=== PATIENT | female | born 1990 | race Two or more races ===

== ENCOUNTER → 2017-10-13 | Outpatient (REF) | payer OTHER | LOC: M SFHCPLAZ 15:22 | DX: Z20.818 Contact with and (suspected) exposure to other bacterial communicable diseases (principal) ==

== ENCOUNTER → 2020-01-23 | Outpatient (REF) | payer OTHER ==
[~2020-01-23] MED LIST: DOCU100C16 PO; IBUP80TA PO; PREN1TAB11 PO
== END ==
LOC: M SFHCWAGY 17:08
PROVIDERS: ATTEND Advanced Practice Midwife
DX: Z34.83 Encounter for supervision of other normal pregnancy, third trimester (principal); Z3A.00 Weeks of gestation of pregnancy not specified

== ENCOUNTER → 2020-02-03 | Outpatient (REF) | payer OTHER | LOC: M SFHCWAGY 17:49 | PROVIDERS: ATTEND Advanced Practice Midwife | DX: O26.899 Other specified pregnancy related conditions, unspecified trimester (principal); Z3A.00 Weeks of gestation of pregnancy not specified | CPT/HCPCS: 87086; G0463 ==

== ENCOUNTER 2020-02-24 21:48 | Inpatient (IN) | payer OTHER ==
[~2020-02-24] VITALS: Ht 175.3 cm; Wt 94.3 kg
[~2020-02-24 21:48] MED LIST changes: -DOCU100C16 PO; -IBUP80TA PO
[2020-02-24] MEDS ORDERED: LR 1,000 ML IV SCH (22:14)
[2020-02-24] MEDS ORDERED: PENICILLIN G POTASSIUM IV 5 MU in D5W MINI-BAG PLUS 100 ML IV STA (22:14)
[2020-02-24] MEDS ORDERED: OXYTOCIN 30 UNITS IN 0.9% NaCl 500ML IV BAG (J2590) As Ordered ONE (22:27)
[2020-02-24 22:40] LABS: HEMOGLOBIN 11.5 g/dl (12.0-15.5); MEAN CORPUSCULAR HEMOGLOBIN 30.9 pg (27.0-33.0); MEAN CORPUSCULAR HGB CONC 33.8 g/dl (32.0-36.5); MEAN CORPUSCULAR VOLUME 91.4 fl (80.0-96.0); PLATELET COUNT, AUTOMATED 124 10^3/uL (150-450); RED BLOOD COUNT 3.72 10^6/uL (4.00-5.40); WHITE BLOOD COUNT 16.6 10^3/uL (4.0-10.0)
[2020-02-24 22:49] VITALS: BP 138/65
[2020-02-24 23:06] VITALS: BP 117/58
[2020-02-24 23:20] VITALS: BP 118/71
[2020-02-24 23:21] VITALS: BP 118/59
--- NOTE | 2020-02-24 23:34 | HPEPDOC ---
Obstetrical History & Physical General Date of Admission Feb 24, 2020 at 22:12 Primary Care Physician: TOO GARZA CNM History of Present Illness Amparo is a 29-year-old (G)5 para (P)2-0-2-2 at 40+3 weeks by LMP (05/17/19). Presents to Labor and Delivery (L&D) in active labor at 7-8cm and intact on arrival. Reports contractions started at 1800 and then progressed to regular contractions rapidly. Reports good FM, denies LOF. Patient breathing well through contractions, denies need for intervention at this time. Chief Complaint: Active Labor Information Provided By: Patient Age: 29 : 5 Term: 2 Pre-term: 0 Abortions: 2 Livin Care Care: Good Care Dating Final EDC: Feb 21, 2020 Final EDC by: LMP LMP: May 17, 2019 EGA at Admission: 40.3 Antepartum Course Diagnos(e)s Hx. of C/Section 2009 2017 Height (inches): 69 Pre- weight (lbs.): 195 Admission Weight (lbs.): 208 Change in Weight (lbs.): 13 Past Medical History Past Obstetrical History #1: Past Obstetrical History: Primgravida Date of Delivery: Mar 23, 2010 Gestation: 39 Type of Delivery: Ceserean section (Transverse Breech) Sex of Infant: Female (8lb 5 oz.) Complications: No Past Obstetrical History #2: Past Obstetrical History: Multigravida Date of Delivery: Dec 13, 2017 Type of Delivery: Spontaneous Vaginal Del. () Sex of Infant: Female (7#10oz) Complications: Yes (2VC) SUSTAINABILITY CONSULTANT History: Spontaneous (05/17/19) Past Medical History Medical History Denies Surgical History: section (2009), Other (2018 Scar Removal) Family History Significant Family History: Diabetes (MGF- Pre-Diabetes) Social History Marital Status: Family situation: Spouse/partner home Psychosocial History: No pertinent psych hx * Smoker: non-smoker Alcohol: Denies Drugs: denies Abuse Violence Screening Have you been hit/kicked/slapp: No Have you been sexually assault: No Imunizations Influenza Status: needs Allergies Coded Allergies: No Known Allergies (Unverified , 11/8/17) Medications Scheduled Vit No.124/Iron/Folic ( Vitamin Tablet) 1 Tab Tab, 1 TAB PO DAILY Physical Examination Physical Examination GENERAL: Alert and oriented times three. BREAST: . ABDOMEN: Gravid and non-tender to touch. FETUS: Is vertex (VTX) by sterile vaginal examination (SVE), fetus is vertex (VTX) by Lebron. EFW 7.5-8lbs. by [place] HEART RATE: Regular rate and rhythm. LUNGS: Clear to auscultation (CTA). EXTREMITIES: No edema. No clonus. Deep tendon reflexes (DTRs) + 2. Laboratory Data 24H LABS Laboratory Tests 2 02/24/20 22:22: Nucleated Red Blood Cells % (auto) 0.0 CBC/BMP Laboratory Tests 02/24/20 22:22 Pertinent Laboratoy Data Blood Type: B+ RBC Antibody Screen: Negative HIV: Negative Hepatitis B: Negative Hepatitis C: Unknown Rapid Plasma Reagin: Nonreactive Rubella: Immune Varicella: Immune Chlamydia/Gonorrhea: Negative Group B Streptococcus: Positive (in Urine) Quad Screen Test: Negative Glucose Tolerance Test: 110 Anatomy Ultrasound Ultrasound Date: September 25, 2019 Normal Anatomy: Yes Placenta Previa: No Estimated Weight (grams): 238 Steroid Therapy Steroid Therapy: No Vaginal Examination Dilation: 8 cm Effacement: 100% Station: 0 Cervical Consistency: Soft Cervical Position: Anterior Presentation: Cephalic presentation Position: Vertex (occiput) Assessment Heart Rate (FHR): 135 Variability: Moderate Accelerations: Positive Decelerations: None Tocometer Contractions: Yes Frequency: regular, every 1-3 min. Duration: greater than 60 seconds Strength: palpated as strong Multi-drug resistant Organism: No history of MDRO Assessment/Plan Assessment IUP at 40.3 weeks gestation active labor Prior section with 1 successful Category I FHR tracing GBS positive Plan Admit and orient. New Car Salesperson and consent. Diet: clears Group B Streptococcus (GBS) positive, plan to treat with Penicillin. Labs and intravenous (IV) per unit protocol. Plans for unmedicated . Lactated Ringers (LR): Bolus 500 mL, then saline lock. Anticipate normal spontaneous delivery (). C-S as appropriate. Dr. Blanton aware of patient's status and is heading to the hospital. TOO GARZA CNM Feb 24, 2020 23:34
[2020-02-24 23:36] VITALS: BP 138/59
[2020-02-24] MEDS ORDERED: OXYTOCIN DRIP 30 UNITS in IV 1 EA IV SCH (23:38)
[2020-02-24] MEDS ORDERED: DOCUSATE SODIUM 100 MG CAP PO PRN (23:45)
[2020-02-24] MEDS ORDERED: IBUPROFEN 600MG TAB PO PRN (23:45)
[2020-02-24] MEDS ORDERED: ACETAMINOPHEN TAB 650MG DOSE (2X325MG) PO PRN (23:45)
[2020-02-24] MEDS ORDERED: DIBUCAINE 1% OINTMENT 30GM TOP PRN (23:45)
[2020-02-24] MEDS ORDERED: ANUSOL HC CREAM 30GM TOP PRN (23:45)
[2020-02-24] MEDS ORDERED: RHOGAM 300 MCG (1500 IU) INJ (J2790) IM SCH (23:45)
[2020-02-24] MEDS ORDERED: IBUPROFEN 800 MG TAB PO PRN (23:45)
[2020-02-24] MEDS ORDERED: MEASLES,MUMPS,RUBELLA VACCINE INJ (MMR-II) (90707) SC SCH (23:45)
[2020-02-24] MEDS ORDERED: METHYLERGONOVINE MALEATE 0.2 MG TAB PO PRN (23:45)
[2020-02-24] MEDS ORDERED: ACETAMINOPHEN 500 MG TAB PO PRN (23:45)
[2020-02-24 23:48] LABS: HIV 1&2 SCREEN CENTAUR NEGATIVE (NEGATIVE)
[2020-02-24 23:51] VITALS: BP 104/70
--- NOTE | 2020-02-24 23:57 | DNPDOC ---
[facility] Delivery Note Delivery Note DATE OF DELIVERY: 02/24/20 at 2246 PREDELIVERY DIAGNOSIS: 40-3/7 weeks' gestation and labor. POST DELIVERY DIAGNOSIS: Delivered. PROCEDURE: Spontaneous vaginal delivery after C/Section. PRINTING PRESS OPERATOR: Coty Dukes CNM, HUMBERTO/ Fe, MAIRA ANESTHESIA: None. ESTIMATED BLOOD LOSS: 250 mL. FINDINGS: 8 pound 9 ounce (3870g) Male infant, Score 9/9, . DELIVERY SUMMARY: Patient is a 29-year-old 5 now para 3-0-2-3 who was admitted to labor and delivery for active labor. Contractions started at 1830 and then progressed rapidly. On arrival she was 7-8 cm, intact. She progressed to fully dilated at 2235. SROM of clear fluid at 2242 with pushing. She pushed to a living male in the CHANA position with restitution to LOT. The anterior shoulder delivered with ease and the corpus immediately followed. Male infant was delivered at 2246 and placed skin to skin on maternal abdomen. Delayed cord clamping until pulsations stopped. Cord clamped x2 and then cut by father of the baby. Placenta delivered spontaneously and intact at 2249 via [place]. Fundal massage and IV Pitocin bolus started after delivery of placenta. Fundus firmed to U-2, midline, minimal bleeding. Perineum, vagina, and cervix examined and one abrasion noted on perineum. Hemostatic with pressure, no repair needed. Sponges counted and correct, no sharps used. and mother left in stable condition. Parents pleased with . They plan to name him "Getachew" and breastfeed. TOO DUKES CNM Feb 24, 2020 23:57
[2020-02-25 00:05] VITALS: BP 110/70
[2020-02-25] MEDS ORDERED: PENICILLIN G POTASSIUM IV 2.5 MU in IV 1 EA IV SCH (02:15)
[2020-02-25 03:00] VITALS: BP 107/58
--- NOTE | 2020-02-25 05:52 | IPNPDOC ---
Progress Note Date of Service: Feb 25, 2020 Day#: 1 Progress Note SUBJECT: Amparo is a 29-year-old female who is a that presented to L&D in active labor. She had an uncomplicated vaginal delivery. She has been ambulating, voiding spontaneously without issue and tolerating regular diet. Breast feeding without issue. She was not treated in time for GBS+ and will likely have to stay for 48 hours for peds for blood cultures. No complaints. OBJECTIVE: VITAL SIGNS: Within normal limits, afebrile. Alert and oriented times three. Breath sounds clear to auscultation. Abdomen: Fundus firm at U-1. Soft, NTTP. Minimal lochia. ASSESSMENT: Day 1 PLAN: 1. Continue supportive nursing care. 2. Continue with pain management as needed. VS, I&O, 24H, Fishbone Vital Signs/I&O Vital Signs Date Time Temp Pulse Resp B/P (MAP) Pulse Ox O2 Delivery O2 Flow Rate FiO2 02/25/20 03:00 99.1 61 16 107/58 (74) 100 Room Air I&O- Last 24 Hours up to 6 AM 02/25/20 06:00 Output Total 500 ml Balance -500 ml Laboratory Data 24H LABS Laboratory Tests 2 02/24/20 22:22: Nucleated Red Blood Cells % (auto) 0.0, Syphilis Serology NONREACTIVE, Hepatitis B Surface Antigen (Rapid) NEGATIVEL, HIV Antigen/Antibody Combo Qual NEGATIVE 02/25/20 01:16: Serology Scanned Report Hepatitis B Testing CBC/BMP Laboratory Tests 02/24/20 22:22 TOO GARZA CNM Feb 25, 2020 05:52
[2020-02-25 06:00] VITALS: BP 106/57
[2020-02-25] MEDS: PRENATAL VITAMINS CHEWABLE TABLET PO SCH (07:49)
[2020-02-25 18:00] VITALS: BP 122/76
[2020-02-26 05:26] VITALS: BP 105/65
[2020-02-26] MEDS: PRENATAL VITAMINS CHEWABLE TABLET PO SCH (07:54)
--- NOTE | 2020-02-26 08:36 | IPNPDOC ---
Progress Note Date of Service: Feb 26, 2020 Day#: 1 Progress Note PPD 2 SUBJECT: Amparo is a 29yo [id number] s/p uncomplicated at 2246 on 02/23 after presenting in active labor at 40w3d, doing well day # 2. She has been ambulating, voiding spontaneously without issue and tolerating regular diet. Breast feeding without issue. Reports lochia is like a normal period. No f/c/n/v/CP/SOB. OBJECTIVE: VITAL SIGNS: Within normal limits, afebrile. Alert and oriented times three. Abdomen: Fundus firm at U-2. Soft, NTTP. Extremities: no pain with palpation of calves ASSESSMENT: Amparo is a 29yo [id number] s/p uncomplicated at 2246 on 02/23 after presenting in active labor at 40w3d, doing well day # 2. Vitals within normal limits, afebrile, hemodynamically stable with no evidence of infection. PLAN: 1. Discharge to home today. 2. Tylenol and Motrin for pain. 3. Encourage breast feeding and ambulation. 4. Interested in minipill for contraception 5. Routine PP visit in 6 weeks in clinic. 6. Discussed return precautions at length. 7. Vaginal rest no heavy lifting 6 weeks Lisha Velazquez MD VS, I&O, 24H, Fishbone Vital Signs/I&O Vital Signs Date Time Temp Pulse Resp B/P (MAP) Pulse Ox O2 Delivery O2 Flow Rate FiO2 02/26/20 05:26 98.4 68 18 105/65 (78) 96 Room Air I&O- Last 24 Hours up to 6 AM 02/26/20 05:59 Intake Total 1500 ml Balance 1500 ml Lisha Velazquez MD Feb 26, 2020 08:36
[2020-02-26] MEDS ORDERED: IBUP80TA PO (08:38)
[2020-02-26] MEDS ORDERED: DOCU100C16 PO (08:38)
--- NOTE | 2020-02-26 08:41 | DS.PDOC ---
Discharge Summary General Date of Admission Feb 24, 2020 at 22:12 Date of Discharge Feb 26, 2020 Discharge Summary PROCEDURES PERFORMED DURING STAY: spontaneous vaginal delivery ADMITTING DIAGNOSES: 1. active labor at term DISCHARGE DIAGNOSES: 1. active labor at term COMPLICATIONS/CHIEF COMPLAINT: Labor Check. HISTORY OF PRESENT ILLNESS/HOSPITAL COURSE: Amparo is a 29yo [id number] s/p uncomplicated at 2246 on 02/23 after presenting in active labor at 40w3d, doing well day # 2. course benign. At time of discharge, vitals within normal limits, afebrile, hemodynamically stable with no evidence of infection. DISCHARGE MEDICATIONS: Please see below. ALLERGIES: Please see below. PHYSICAL EXAMINATION ON DISCHARGE: VITAL SIGNS: Within normal limits, afebrile. Alert and oriented times three. Abdomen: Fundus firm at U-2. Soft, NTTP. Extremities: no pain with palpation of calves LABORATORY DATA: Please see below. DIET: regular DISPOSITION: home DISCHARGE PLAN/INSTRUCTIONS: 1. Discharge to home today. 2. Tylenol and Motrin for pain. 3. Encourage breast feeding and ambulation. 4. Interested in minipill for contraception 5. Routine PP visit in 6 weeks in clinic. 6. Discussed return precautions at length. 7. Vaginal rest no heavy lifting 6 weeks DISCHARGE CONDITION: Stable TIME SPENT ON DISCHARGE: Greater than 20 minutes. Lisha Velazquez MD Vital Signs/I&Os Vital Signs Date Time Temp Pulse Resp B/P (MAP) Pulse Ox O2 Delivery O2 Flow Rate FiO2 02/26/20 05:26 98.4 68 18 105/65 (78) 96 Room Air I&O- Last 24 Hours up to 6 AM 02/26/20 05:59 Intake Total 1500 ml Balance 1500 ml Discharge Medications Scheduled Vit No.124/Iron/Folic ( Vitamin Tablet) 1 Tab Tab, 1 TAB PO DAILY, (Reported) Scheduled PRN Docusate Sodium (Docusate Sodium) 100 Mg Capsule, 100 MG PO QHSP PRN for CONSTIPATION Ibuprofen (Ibuprofen) 800 Mg Tablet, 800 MG PO Q8HP PRN for PAIN LEVEL 6-10 Allergies Coded Allergies: No Known Allergies (Unverified , 03/08/17) Lisha Velazquez MD Feb 26, 2020 08:41
== END 2020-02-26 17:00 | disposition home or self-care (01) | DRG 806 ==
LOC: M LDO 21:48 → M LDI 22:12 → M OBS 02-25 00:29
PROVIDERS: ADMIT Advanced Practice Midwife; ATTEND Advanced Practice Midwife
PROC: 10E0XZZ Delivery of Products of Conception, External Approach (ICD-10-PCS; principal; 2020-02-24)
DX: O34.211 Maternal care for low transverse scar from previous cesarean delivery (principal); Z37.0 Single live birth; O98.82 Other maternal infectious and parasitic diseases complicating childbirth; O48.0 Post-term pregnancy; Z3A.40 40 weeks gestation of pregnancy

== ENCOUNTER → 2020-07-24 | Outpatient (REF) | payer OTHER ==
[~2020-07-24] MED LIST changes: +DOCU100C16 PO; +IBUP80TA PO
== END ==
LOC: M SFHCWAGY 09:54
PROVIDERS: ATTEND Advanced Practice Midwife
DX: Z12.4 Encounter for screening for malignant neoplasm of cervix (principal); Z77.9 Other contact with and (suspected) exposures hazardous to health
CPT/HCPCS: 87624; G0123